=== PATIENT | female | born 1960 | race Caucasian/White ===

== ENCOUNTER 2019-04-18 14:14 | Inpatient (IN) | payer BC ==
[~2019-04-18] VITALS: Ht 170.2 cm; Wt 113.2 kg
[~2019-04-18 14:14] MED LIST: ALL DAY ALLERGY10 M2 PO; CIPRO250 M1 PO; COUMADIN 5 MG TA5 M1 PO; COUMADIN7.5 MG PO; DIOVAN40 MG PO; LOPRESSOR PO; TOPROL XL50 MG PO; ZOCOR 20 MG TAB20 M1 PO; ZOLOFT 50 MG TA50 M1 PO
[2019-04-18 14:20] VITALS: BP 125/50
[2019-04-18] MEDS ORDERED: COZAAR 25 MG TA25 M1 PO (14:26)
[2019-04-18] MEDS ORDERED: LIVALO2 MG PO (14:26)
[2019-04-18] MEDS ORDERED: UNICOMPLEX M TA1 TA1 PO (14:26)
[2019-04-18] MEDS ORDERED: HYDROCHLOROTH12.5 M1 PO (14:26)
[2019-04-18 14:49] LABS: ABSOLUTE EOSINOPHILS 0.1 thou/uL (0.0-0.7); ABSOLUTE MONOCYTES 0.5 thou/uL (0.0-1.2); ABSOLUTE NEUTROPHILS 5.1 thou/uL (1.6-8.1); BASOPHILS 0.4 %; EOSINOPHILS 1.5 %; HEMATOCRIT 35.3 % (37.0-47.0); LYMPHOCYTES 25.7 %; MCV 94.2 fL (80.0-100.0); MONOCYTES 6.7 %; NUCLEATED RBCS 0 /100WBC; PLATELET COUNT* 173 thou/uL (150-400); POLYS 65.7 %; RBC 3.75 mil/uL (4.20-5.00); RDW-CV 15.3 % (10.5-14.5); WBC 7.7 thou/uL (4.0-11.0)
[2019-04-18 14:52] LABS: URINE BILIRUBIN NEGATIVE (Negative); URINE BLOOD 3+ (Negative); URINE CLARITY CLOUDY; URINE COLOR YELLOW; URINE GLUCOSE-RANDOM NEGATIVE (Negative); URINE KETONES NEGATIVE (Negative); URINE NITRITE-REFLEX NEGATIVE (Negative); URINE PROTEIN TRACE (Negative); URINE UROBILINOGEN 0.2 E.U./dl (0.2-1.0)
[2019-04-18 14:53] LABS: URINE LEUKOCYTES-REFLEX 3+ (Negative)
[2019-04-18 14:57] LABS: CALCIUM 8.7 mg/dL (8.5-10.1); CREATININE 1.4 mg/dL (0.6-1.3); POTASSIUM 3.1 mmol/L (3.5-5.1)
[2019-04-18 14:59] LABS: PROTIME 69.6 Seconds (9.20-11.50)
[2019-04-18 15:02] LABS: ALBUMIN 3.4 g/dL (3.4-5.0); TOTAL BILIRUBIN 0.5 mg/dL (<0.1-1.0); TOTAL PROTEIN 6.8 g/dL (6.4-8.2)
[2019-04-18 15:03] LABS: INR 7.3
[2019-04-18 15:06] LABS: CASTS None Seen /LPF (None Seen); CRYSTALS None Seen /LPF (None Seen); SQUAMOUS 4-10 Moderate /LPF (0-3); URINE RBC >20 Many /HPF (0-2)
[2019-04-18 17:07] VITALS: BP 131/55
[2019-04-18 18:00] VITALS: BP 148/54
[2019-04-18 23:45] VITALS: BP 105/38
[2019-04-19 03:56] VITALS: BP 112/54
[2019-04-19 04:18] LABS: ABSOLUTE EOSINOPHILS 0.1 thou/uL (0.0-0.7); ABSOLUTE LYMPHOCYTES 2.4 thou/uL (0.8-5.3); ABSOLUTE MONOCYTES 0.5 thou/uL (0.0-1.2); BASOPHILS 0.5 %; EOSINOPHILS 2.4 %; HEMATOCRIT 33.1 % (37.0-47.0); HEMOGLOBIN 11.2 gm/dL (12.0-15.0); LYMPHOCYTES 39.7 %; MCH 31.9 pg (26.0-34.0); MCHC 33.8 g/dL (28.0-37.0); MCV 94.4 fL (80.0-100.0); MONOCYTES 8.5 %; MPV 7.9 fl. (7.2-11.1); NUCLEATED RBCS 0 /100WBC; PLATELET COUNT* 155 thou/uL (150-400); POLYS 48.9 %; RBC 3.51 mil/uL (4.20-5.00); RDW-CV 15.6 % (10.5-14.5); WBC 6.1 thou/uL (4.0-11.0)
[2019-04-19 04:32] LABS: CALCIUM 8.4 mg/dL (8.5-10.1); CREATININE 1.2 mg/dL (0.6-1.3); POTASSIUM 3.8 mmol/L (3.5-5.1)
[2019-04-19 04:45] LABS: INR 6.5
--- NOTE | 2019-04-19 07:34 | NUR ---
PT CARE ASSUMED AT 1930. SAT MAINTAINED IN RA. ALERT AND ORIENTED X4. CALL LIGHT WITHIN REACH AND BED IN LOW POSITION. PT HAD A RAN OF V TACH, 20 BEATS, VSS NOTIFIED, NO ORDERS RECIEVED. HOURLY ROUNDING DONE FOR PT SAFETY.
[2019-04-19 08:00] VITALS: BP 113/44
[2019-04-19 11:26] VITALS: BP 121/55
[2019-04-19 15:43] VITALS: BP 105/51
[2019-04-19 20:10] VITALS: BP 125/63
[2019-04-20] VITALS: BP 109/53
[2019-04-20 04:00] VITALS: BP 117/52
[2019-04-20 05:20] LABS: CALCIUM 8.7 mg/dL (8.5-10.1); CREATININE 1.3 mg/dL (0.6-1.3); MAGNESIUM 1.9 mg/dL (1.8-2.4); POTASSIUM 4.1 mmol/L (3.5-5.1)
[2019-04-20 05:33] LABS: PROTIME 31.4 Seconds (9.20-11.50)
[2019-04-20 05:44] LABS: INR 3.2
--- NOTE | 2019-04-20 07:33 | EKG ---
[place] [address] ELECTROCARDIOGRAM REPORT Name: KETTY CELIS Room: [address] ADM IN [facility].#: [id number] Admission: 04/18/19 Attend Phys: Sondra Montano MD Discharge: Date of : 58 Report #: [id number] THIS REPORT FOR: //name// [facility] ED Test Date: 2019-04-18 Test Time: 15:16:41 Pat Name: KETTY CELIS Department: Room: [facility] Gender: F Environmental Monitoring Specialist: : 1960 Requested By: Chidi Dyer Order Number: [id number] MD: Lowell Bridges Measurements Intervals [place] Rate: 66 P: 33 HI: 184 QRS: 2 QRSD: 105 T: 171 QT: 454 QTc: 476 Interpretive Statements Sinus rhythm LVH with secondary repolarization abnormality Borderline prolonged QT interval Compared to ECG 07/14/2016 12:52:53 No significant changes Electronically Signed On 04-20-2019 7:33:02 CDT by Lowell Bridges [email or web address] <ELECTRONICALLY SIGNED> By: Lowell Bridges MD, [facility] 04/20/19 0733 1516 1516 Lowell Bridges MD, [facility] /EPI
--- NOTE | 2019-04-20 07:40 | NUR ---
PT CARE ASSUMED AT 1930. SAT MAINTAINED IN RA. ALERT AND ORIENTED X4. CALL LIGHT WITHIN REACH AND BED IN LOW POSITION. DENIES PAIN AND SOB. HOURLY ROUNDING DONE FOR PT SAFETY.
[2019-04-20 08:00] VITALS: BP 131/57
--- NOTE | 2019-04-20 10:40 | CON ---
[address] [address] CONSULTATION Name: KETTY CELIS Room: [address] IN .R.#: [id number] Admission: 04/18/19 Attend Phys: Sondra Montano MD Discharge: Date of : 58 Report #: [id number] THIS REPORT FOR: //name// CC: MARIALUISA physician/PCP FAM unknown Hu Montano DATE OF SERVICE: 04/19/2019 HISTORY OF PRESENT ILLNESS: The patient is a 58-year-old white female who I was asked to see in the hospital today after she was noted to have an abnormal heart rhythm. The history is obtained from the patient as well as her . She apparently presented in 2009 with chest pain. 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 She was transferred to [facility]. Apparently, underwent aortic valve replacement and replacement of the aortic root. She has been chronically anticoagulated since that time. She is followed by my partner, Dr. Amaya. She has been doing well and does have her INR checked monthly. Recently, she developed a sore throat. She was hoarse and saw an ENT doctor. She was felt to have a sinus infection and placed on prednisone and antibiotics. 2 days ago, her INR was checked and it was elevated. She was told to come to the hospital yesterday and was admitted. She had no significant chest pain, palpitations, syncope, edema. When she was admitted yesterday, her warfarin was held. She has had no further dark urine. Last night on the monitor; however, she was noted to have a wide complex tachycardia. I was asked to see her for further evaluation and treatment. PAST MEDICAL HISTORY: Otherwise significant for hysterectomy, knee surgery, cholecystectomy, hypertension. MEDICATIONS: Warfarin, Livalo, metoprolol, losartan. FAMILY HISTORY: Negative for heart disease. SOCIAL HISTORY: She is . She and her live in [place]. She does not work outside the home. No smoking or alcohol abuse. REVIEW OF SYSTEMS: She has had no history of stroke, asthma, peptic ulcer disease, liver disease, kidney disease, cancer, psychiatric illness, chronic skin condition. PHYSICAL EXAMINATION: GENERAL: Revealed a middle-aged female, appeared in no distress. VITAL SIGNS: She had a blood pressure 130/60, pulse 60. She is afebrile. HEENT: She was anicteric. Conjunctivae pink. [place] [address] CONSULTATION Name: KETTY CELIS Room: [address]#: [id number] Admission: 04/18/19 Attend Phys: Sondra Montano MD Discharge: Date of : 58 Report #: [id number] NECK: Veins nondistended. No carotid bruits. CHEST: Clear to auscultation. CARDIOVASCULAR: Regular rate and rhythm, grade 2 systolic ejection murmur along the sternal border. ABDOMEN: Soft. EXTREMITIES: Had no edema. SKIN: Cool and dry. NEUROLOGIC: Nonfocal. LABORATORY DATA: ECG on admission showed a sinus rhythm with nonspecific ST and T-wave changes. On the monitor last night, she was noted to have a wide complex tachycardia at 130 beats per minute. Her workup, she had lab work including sodium 140, creatinine 1.2, magnesium 1.9. Liver function studies were normal. Troponin was not performed. Previous TSH was 2.0. Her INR on admission was 7.3, today it is 6.5. White blood cell count 6.1, hemoglobin 11.2, hematocrit 33.1. Urinalysis, trace protein, 3+ blood, 3+ leukocytes, few wbc's, many bacteria. IMPRESSION AND RECOMMENDATIONS: 1. Wide complex tachycardia. Possible ventricular tachycardia. Possible sinus tachycardia with aberrancy versus supraventricular tachycardia with aberrancy. I would continue beta-leonila at this time. 2. Recent upper respiratory infection. 3. Over-anticoagulation, suspect secondary to antibiotics. 4. Hypertension. The patient is on a beta leonila and ARB. 5. Hyperlipidemia. The patient is on a statin drug. 6. Possible urinary tract infection. <ELECTRONICALLY SIGNED> By: Lowell Bridges MD, FACC 04/20/19 1040 1157 [id number] Bridges MD, FACC /nt
[2019-04-20] MEDS ORDERED: CEFDINIR300 MG PO (12:23)
[2019-04-20 12:44] VITALS: BP 131/57
--- NOTE | 2019-04-20 14:14 | NUR ---
ORDER RECEIVED TO DISCHARGE PATIENT HOME TO SELF CARE. MED REC MEDICAATION EDUCATION, STROKE EDUCATION, AND NEED FOR FOLLOW UP APPOINTMENTS COVERED AND STATED UNDERSTOOD BY PATIENT. IV ANDD TELEMETRY PACK REMOVED. ADI GATHERED HER BELONGONGS CHOSE TO AMBULATE TO AWAITING CAR WITH SPOUSE PRESENT. HOURLY ROUNDING COMPLETED FOR PATIENT SAFETY. DISCHARGE TIME OF 13:40.
--- NOTE | 2019-04-21 16:10 | EKG ---
[place] [address] ELECTROCARDIOGRAM REPORT Name: KETTY CELIS Room: [address] IN .R.#: [id number] Admission: 04/18/19 Attend Phys: Sondra Montano MD Discharge: 04/20/19 Date of : 58 Report #: [id number] THIS REPORT FOR: //name// [facility] Test Date: 2019-04-20 Test Time: 08:47:20 Pat Name: KETTY CELIS Department: Room: [address] Gender: F Global Security Architect: : 1960 Requested By: Lowell Bridges Order Number: [id number] Dina MD: Carlos Silva Measurements Intervals [place] Rate: 56 P: 39 [place]: 177 QRS: -7 QRSD: 103 T: 39 QT: 470 QTc: 454 Interpretive Statements Sinus rhythm Left ventricular hypertrophy Nonspecific T abnormalities, anterior leads Compared to ECG 04/18/2019 15:16:41 T-wave abnormality now present Early repolarization no longer present Electronically Signed On 04-21-2019 16:10:21 CDT by Carlos Silva [email or web address] <ELECTRONICALLY SIGNED> By: Carlos Silva MD, FACC 04/21/19 1610 0847 0847 Carlos Silva MD, [facility] /EPI
== END 2019-04-20 13:40 | disposition home or self-care (01) | DRG 813 ==
LOC: M.ERS 14:14 → M.2W 15:22 → M.TBA-ER 15:22 → M.2W 17:20
PROVIDERS: Internal Medicine Cardiovascular Disease; Nurse Practitioner Family; ADMIT Family Medicine
DX: D68.32 Hemorrhagic disorder due to extrinsic circulating anticoagulants (principal); N39.0 Urinary tract infection, site not specified; I47.2 Ventricular tachycardia; R31.9 Hematuria, unspecified; J38.00 Paralysis of vocal cords and larynx, unspecified; E78.5 Hyperlipidemia, unspecified; E87.6 Hypokalemia; E78.00 Pure hypercholesterolemia, unspecified; Z96.652 Presence of left artificial knee joint; T36.95XA Adverse effect of unspecified systemic antibiotic, initial encounter; N18.3 Chronic kidney disease, stage 3 (moderate); I12.9 Hypertensive chronic kidney disease with stage 1 through stage 4 chronic kidney disease, or unspecified chronic kidney disease; Z95.2 Presence of prosthetic heart valve; Z79.01 Long term (current) use of anticoagulants; Z90.49 Acquired absence of other specified parts of digestive tract; Z90.710 Acquired absence of both cervix and uterus; Z88.5 Allergy status to narcotic agent; Y92.89 Other specified places as the place of occurrence of the external cause

== ENCOUNTER → 2019-08-14 | Outpatient (CLI) | payer BC ==
[~2019-08-14] VITALS: Ht 170.2 cm; Wt 108.0 kg
[~2019-08-14] MED LIST changes: +CEFDINIR300 MG PO; +COZAAR 25 MG TA25 M1 PO; +HYDROCHLOROTH12.5 M1 PO; +LIVALO2 MG PO; +UNICOMPLEX M TA1 TA1 PO
[2019-08-14 10:36] LABS: HEMATOCRIT 36.8 % (37.0-47.0); HEMOGLOBIN 12.6 gm/dL (12.0-15.0); MCH 31.5 pg (26.0-34.0); MCHC 34.2 g/dL (28.0-37.0); MCV 92.2 fL (80.0-100.0); MPV 8.8 fl. (7.2-11.1); RDW-CV 14.2 % (10.5-14.5); WBC 7.6 thou/uL (4.0-11.0)
[2019-08-14 10:46] VITALS: BP 148/67
[2019-08-14 10:46] LABS: ANION GAP 10 mmol/L (7-16); APTT 41.6 Seconds (25.0-31.3); BUN 15 mg/dL (7-18); CALCIUM 8.5 mg/dL (8.5-10.1); CHLORIDE 102 mmol/L (98-107); CO2 29 mmol/L (21-32); CREATININE 1.2 mg/dL (0.6-1.3); GLUCOSE 104 mg/dL (70-99); INR 2.6; POTASSIUM 3.4 mmol/L (3.5-5.1); PROTIME 25.5 Seconds (9.20-11.50); SODIUM 141 mmol/L (136-145)
[2019-08-14 10:50] LABS: ALBUMIN 3.7 g/dL (3.4-5.0); ALKALINE PHOSPHATASE 59 U/L (46-116); CHOLESTEROL 176 mg/dL (<200); HDL CHOLESTEROL 55 mg/dL (>40); LDL CHOLESTEROL 96 mg/dL (<100); SGOT 23 U/L (15-37); SGPT 32 U/L (30-65); TC:HDL 3.2 Ratio (Not establshd); TOTAL BILIRUBIN 0.6 mg/dL (<0.1-1.0); TOTAL PROTEIN 7.4 g/dL (6.4-8.2); TRIGLYCERIDE 128 mg/dL (<150); VLDL 26 mg/dL (<40)
[2019-08-14 10:51] LABS: SERUM ASSESSMENT Clear
--- NOTE | 2019-08-14 14:16 | EKG ---
[place] [address] ELECTROCARDIOGRAM REPORT Name: LALITAKETTY Room: [facility]#: [id number] Admission: 08/14/19 Attend Phys: Thomas Amaya MD Discharge: Date of : 58 Report #: [id number] THIS REPORT FOR: //name// [facility] Test Date: 2019-08-14 Test Time: 10:44:23 Pat Name: KETTY CELIS Department: Room: Gender: F Circulation Crew Leader: : 1960 Requested By: Thomas Amaya Order Number: [id number] Reading MD: Lowell Bridges Measurements Intervals [place] Rate: 51 P: 23 [place]: 176 QRS: -2 QRSD: 105 T: 77 QT: 496 QTc: 457 Interpretive Statements Sinus bradycardia LVH with secondary repolarization abnormality Compared to ECG 04/20/2019 08:47:20 no change Electronically Signed On 08-14-2019 14:16:21 PHOTOGRAPHIC EQUIPMENT INSPECTOR by Lowell Bridges [email or web address] <ELECTRONICALLY SIGNED> By: Lowell Bridges MD, [facility] 08/14/19 1416 1044 43 Lowell Bridges MD, FACC /EPI
--- NOTE | 2019-08-14 17:19 | NUR ---
patient lab value for INR was 2.6. Cannot do the procedure today. Will reschedule for saturday.
== END | disposition home or self-care (01) ==
LOC: M.CL 09:42
PROVIDERS: Internal Medicine Cardiovascular Disease
DX: I20.9 Angina pectoris, unspecified (principal); Z53.8 Procedure and treatment not carried out for other reasons; R00.2 Palpitations; E78.5 Hyperlipidemia, unspecified; Z98.890 Other specified postprocedural states; Z88.8 Allergy status to other drugs, medicaments and biological substances; Z79.899 Other long term (current) drug therapy; Z79.01 Long term (current) use of anticoagulants

== ENCOUNTER → 2019-08-17 | Outpatient (CLI) | payer BC ==
[~2019-08-17] VITALS: Ht 170.2 cm; Wt 107.0 kg
[2019-08-17 11:42] VITALS: BP 124/51
[2019-08-17 11:51] LABS: APTT 28.2 Seconds (25.0-31.3); PROTIME 10.3 Seconds (9.20-11.50)
[2019-08-17 15:01] VITALS: BP 13/54
--- NOTE | 2019-08-19 09:04 | CARD ---
[address] [address] CARDIAC CATH REPORT Name: KETTY CELIS Kit Room: [facility]#: [id number] Admission: 08/17/19 Attend Phys: Thomas Amaya MD Discharge: Date of : 58 Report #: [id number] THIS REPORT FOR: //name// APPROVED REPORT Study performed: 08/17/2019 12:46:45 Patient Details Patient Status: Out-Patient Room #: The patient is a 59 year-old female Event Personnel Thomas Amaya Business Transformation Manager, Aisha Murdock Director Of Athletics, Gisella Martinez RN Monitor, Tabitha Sandy RTR Scrub, Corby Rai RTR Scrub Procedures Performed Art Access - R radial artery Coronary Angiography Only Supravalvular Aortography Injection Indication Dyspnea, Positive stress test, Chest pain Procedure Narrative The patient was brought electively to the Cardiac Catheterization Laboratory and was prepped and draped in a sterile manner. The right wrist was infiltrated with subcutaneous anesthesia. A Slender Glidesheath sheath was inserted into the right radial artery. Coronary angiography was performed using coronary diagnostic catheters. The right coronary system was accessed and visualized with a JR4 5frMPA 6fr catheter. The left coronary system was accessed and visualized with a JL 3.5 5fr catheter. Closure device was deployed with a Fr . The patient tolerated the procedure well and there were no complications associated with the procedure. Left Ventricle was not assessed. A Supravalvular Aortic Root angiogram was performed. Intraoperative Conscious Sedation Sedation start time: 13:25 Case end Time: 13:57 Fentanyl 50 mcg Versed 2 mg Fluoro Time: 16.0 minutes Dose: DAP 713125 cGycm2 1738 mGy Contrast Type and Amount: Visipaque [address] [place] [address] CARDIAC CATH REPORT Name: KETTY CELSI Room: [facility]#: [id number] Admission: 08/17/19 Attend Phys: Thomas Amaya MD Discharge: Date of : 58 Report #: [id number] Coronary Angiography The patient's coronary anatomy is right dominant. Diagnostic Cath Left Main The left main coronary artery is normal and bifurcates into a left anterior descending and circumflex coronary artery. LAD The left anterior descending coronary artery has some minimal 10% plaquing proximally. The mid and distal vessel appeared normal. Diagonal 1 A moderate size first diagonal branch is normal. Diagonal 2 A moderate size second diagonal branch is normal. Circumflex The circumflex coronary artery has minimal less than 10% plaquing noted in the midportion. Remainder the vessel is normal. OM1 A moderate sized first obtuse marginal branch is normal. OM2 A moderate to large sized second obtuse marginal branch is normal. Right Coronary The right coronary artery has some mild 10% plaquing distally. The remainder the vessel is normal. R PDA A moderate size PDA is normal. RPLV A moderate size branch and posterior lateral branch is normal. Left Ventriculography Left Ventriculography was not performed. A mechanical aortic valve is in place therefore left heart catheterization was not performed. Hemodynamics The aortic pressure is 117/53 mmHg with a mean of 80 mmHg. Conclusion 1. Minimal atherosclerotic coronary artery disease as outlined above. Recommendations 1. Continue medical management and aggressive risk factor modification. <ELECTRONICALLY SIGNED> By: Thomas Amaya MD, FACC 08/19/19903 3 3Micjosh Amaya MD, FACC /INF
== END | disposition home or self-care (01) ==
LOC: M.CL 09:53
PROVIDERS: Internal Medicine Cardiovascular Disease
DX: I25.10 Atherosclerotic heart disease of native coronary artery without angina pectoris (principal); R07.9 Chest pain, unspecified; E78.5 Hyperlipidemia, unspecified; Z98.890 Other specified postprocedural states; Z79.899 Other long term (current) drug therapy; Z88.6 Allergy status to analgesic agent; Z79.01 Long term (current) use of anticoagulants

== ENCOUNTER → 2020-09-05 | Outpatient (CLI) | payer BC ==
[2020-09-05 14:43] LABS: ALBUMIN 3.8 g/dL (3.4-5.0); CALCIUM 9.3 mg/dL (8.5-10.1); CREATININE 1.4 mg/dL (0.6-1.3); MAGNESIUM 1.9 mg/dL (1.8-2.4); POTASSIUM 3.6 mmol/L (3.5-5.1); TOTAL BILIRUBIN 0.3 mg/dL (<0.1-1.0); TOTAL PROTEIN 7.4 g/dL (6.4-8.2)
== END ==
LOC: M.LAB 14:09
PROVIDERS: ATTEND Registered Nurse
DX: R00.2 Palpitations (principal)

== ENCOUNTER → 2021-04-19 | Outpatient (CLI) | payer BC ==
[2021-04-19 09:14] LABS: CREATININE 1.6 mg/dL (0.6-1.3)
== END ==
LOC: M.LAB 08:00
PROVIDERS: ATTEND Registered Nurse
DX: J98.4 Other disorders of lung (principal); K57.30 Diverticulosis of large intestine without perforation or abscess without bleeding; I51.7 Cardiomegaly; J98.11 Atelectasis; I71.01 Dissection of thoracic aorta; I10 Essential (primary) hypertension; I71.2 Thoracic aortic aneurysm, without rupture; I25.10 Atherosclerotic heart disease of native coronary artery without angina pectoris; M79.604 Pain in right leg; M79.605 Pain in left leg; Z95.2 Presence of prosthetic heart valve